=== PATIENT | male | born 1950 | race Caucasian/White ===

== ENCOUNTER 2018-04-05 10:01 | Inpatient (IN) | payer OTHER ==
[2018-04-01 11:03] VITALS: BP 114/70
[~2018-04-05] VITALS: Ht 188 cm; Wt 104.7 kg
[~2018-04-05 10:01] MED LIST: ASPI-496 PO; ATOR-2 PO; BACITRACIN 50,000 UNIT ONE; BUPIVACAINE/PF-EPI 0.5% 1:200K ONE; DILT180C72 PO; LISI5TAB7 PO; METF500T17 PO; METO-93 PO; THROMBIN 5,000 UNIT VIAL TP ONE
[2018-04-05] MEDS ORDERED: LACTATED RINGERS 1,000 ML IV SCH (11:08)
[2018-04-05] MEDS ORDERED: ACETAMINOPHEN 500 MG TABLET PO ONE (11:30)
[2018-04-05] MEDS ORDERED: PLEASE ENTER HEIGHT AND WEIGHT MC SCH (11:30)
[2018-04-05] MEDS ORDERED: ONDANSETRON ODT 8 MG PO ONE (11:30)
[2018-04-05] MEDS ORDERED: GABAPENTIN 300 MG CAPSULE PO ONE (11:30)
[2018-04-05] MEDS ORDERED: ACETAMINOPHEN 500 MG TABLET ONE (11:40)
[2018-04-05] MEDS ORDERED: ONDANSETRON ODT 8 MG ONE (11:41)
[2018-04-05] MEDS ORDERED: GABAPENTIN 300 MG CAPSULE ONE (11:41)
[2018-04-05] MEDS ORDERED: MIDAZOLAM 1 MG/ML, 2ML ONE (12:03)
[2018-04-05] MEDS ORDERED: FENTANYL PF 250 MCG/5ML ONE (12:03)
[2018-04-05] MEDS ORDERED: ROCURONIUM 10 MG/ML,10ML ONE (12:39)
[2018-04-05] MEDS ORDERED: PHENYLEPHRINE 10 MG/ML ONE (12:39)
[2018-04-05] MEDS ORDERED: EPHEDRINE 50 MG/ML, 1ML ONE (12:39)
[2018-04-05] MEDS ORDERED: DEXAMETHASONE 4 MG/ML, 1ML ONE (12:39)
[2018-04-05] MEDS ORDERED: MIDAZOLAM 1 MG/ML, 2ML IV PRN (13:30)
[2018-04-05] MEDS ORDERED: HYDROmorphone 2 MG/ML, 1ML IVPush PRN (13:30)
[2018-04-05] MEDS ORDERED: ALBUTEROL/IPRATROPIUM 2.5MG/0.5MG, 3 ML NPPB PRN (13:30)
[2018-04-05] MEDS ORDERED: ONDANSETRON 2MG/ML, 2ML IV PRN ×2 (13:30→17:30)
[2018-04-05] MEDS ORDERED: PROMETHAZINE 25 MG/ML, 1ML IV PRN (13:30)
[2018-04-05] MEDS ORDERED: MEPERIDINE/PF 25MG/0.5ML IVPush PRN (13:30)
[2018-04-05] MEDS ORDERED: OXYcodone 5 MG/5 ML ORAL.SOL UDC PO PRN (13:30)
[2018-04-05] MEDS ORDERED: hydrALAzine 20 MG/ML, 1ML IV PRN (13:30)
[2018-04-05] MEDS ORDERED: METOPROLOL 1 MG/ML, 5ML IV PRN (13:30)
[2018-04-05] MEDS ORDERED: PROPOFOL 10 MG/ML, 20ML ONE (14:19)
[2018-04-05] MEDS ORDERED: SUCCINYLCHOLINE 20 MG/ML, 10ML ONE (14:19)
[2018-04-05] MEDS ORDERED: CEFAZOLIN 1,000 MG ONE (14:19)
[2018-04-05] MEDS ORDERED: FENTANYL PF 100 MCG/2ML ONE (15:09)
[2018-04-05] MEDS ORDERED: OXYcodone 5 MG/5 ML ORAL.SOL UDC ONE (15:09)
[2018-04-05] MEDS: FENTANYL PF 100 MCG/2ML IV PRN ×2 (15:13→15:39)
[2018-04-05 16:18] VITALS: BP 120/69
[2018-04-05] MEDS ORDERED: LABETALOL 5MG/ML, 20ML IV PRN (17:30)
[2018-04-05] MEDS ORDERED: DIPHENHYDRAMINE 50 MG CAPSULE PO PRN (17:30)
[2018-04-05] MEDS ORDERED: METHOCARBAMOL 750 MG TABLET PO PRN (17:30)
[2018-04-05] MEDS ORDERED: DIPHENHYDRAMINE 50 MG/ML, 1ML IM PRN (17:30)
[2018-04-05] MEDS ORDERED: HYDROcodone/APAP 5/325 TABLET PO PRN (17:30)
[2018-04-05] MEDS ORDERED: MAGNESIUM HYDROXIDE 8%, 30ML UDC PO PRN (17:30)
[2018-04-05] MEDS ORDERED: PROMETHAZINE 25 MG/ML, 1ML IM PRN (17:30)
[2018-04-05] MEDS ORDERED: OXYcodone/APAP 5/325MG TABLET PO PRN (17:30)
[2018-04-05] MEDS ORDERED: BISACODYL 10 MG SUPP PR PRN (17:30)
[2018-04-05] MEDS ORDERED: CEFAZOLIN PMX 1GM/50ML 50 ML IVPB SCH (18:00)
[2018-04-05] MEDS ORDERED: HYDROmorphone 2 MG/ML, 1ML IM PRN (18:00)
[2018-04-05] MEDS: NS + 20MEQ KCL 1,000 ML IV SCH (18:27)
[2018-04-05 20:15] VITALS: BP 120/70
[2018-04-05] MEDS ORDERED: ATORVASTATIN 80 MG TABLET PO SCH ×2 (21:00)
[2018-04-05] MEDS ORDERED: LISINOPRIL 5 MG TABLET PO SCH ×2 (21:00)
[2018-04-05] MEDS: CEFAZOLIN PMX 1GM/50ML 50 ML IVPB SCH (21:08)
[2018-04-06 00:38] VITALS: BP 111/75
[2018-04-06 04:17] VITALS: BP 134/80
[2018-04-06] MEDS: CEFAZOLIN PMX 1GM/50ML 50 ML IVPB SCH (04:47)
[2018-04-06] MEDS ORDERED: METOPROLOL SUCCINATE 50 MG TAB.ER.24H PO SCH ×2 (06:00)
[2018-04-06] MEDS: NS + 20MEQ KCL 1,000 ML IV SCH (06:30)
[2018-04-06] MEDS ORDERED: metFORMIN 500 MG TABLET PO SCH ×2 (08:00→17:00)
[2018-04-06] MEDS ORDERED: OXYC-302 PO (08:06)
[2018-04-06 08:34] VITALS: BP 115/62
[2018-04-06] MEDS ORDERED: SENNA/DOCUSATE TABLET PO SCH (09:00)
[2018-04-06] MEDS ORDERED: DILTIAZEM 180 MG PO SCH (09:00)
[2018-04-06] MEDS ORDERED: DILTIAZEM CD 180 MG CAP.ER.24H PO SCH (09:00)
[2018-04-06 11:06] VITALS: BP 121/61
== END 2018-04-06 12:55 | disposition home or self-care (01) | DRG 519 ==
LOC: OUT 10:01 → 4NOR 16:10 → OUT 16:15 → 4NOR 16:15 → DCLOUNGE 04-06 12:55
PROVIDERS: ADMIT Neurological Surgery; ATTEND Neurological Surgery
PROC: 0SB20ZZ Excision of Lumbar Vertebral Disc, Open Approach (ICD-10-PCS; 2018-04-05)
PROC: 01NB0ZZ Release Lumbar Nerve, Open Approach (ICD-10-PCS; 2018-04-05)
PROC: 00NY0ZZ Release Lumbar Spinal Cord, Open Approach (ICD-10-PCS; principal; 2018-04-05 13:00)
DX: M48.061 Spinal stenosis, lumbar region without neurogenic claudication (principal); M51.06 Intervertebral disc disorders with myelopathy, lumbar region; M51.16 Intervertebral disc disorders with radiculopathy, lumbar region; I25.10 Atherosclerotic heart disease of native coronary artery without angina pectoris; Z95.1 Presence of aortocoronary bypass graft; I10 Essential (primary) hypertension; I48.91 Unspecified atrial fibrillation
CPT/HCPCS: 72100; 82962; G0378; J0690; J1100; J2250; J2270; J2704; J3010; J3480; J0330; J2370; J7120